=== PATIENT | female | born 1990 | race Caucasian/White ===

== ENCOUNTER 2018-06-20 11:22 | Emergency (ER) | payer MEDICAID ==
[~2018-06-20] VITALS: Ht 157.5 cm; Wt 59.4 kg
[~2018-06-20 11:22] MED LIST: ALPR1TAB2 PO; CEPH500C5 PO; IBUP-1986 PO; ONDA4TAB6 PO
[2018-06-20 11:39] VITALS: BP 114/67
[2018-06-20] MEDS ORDERED: HYDROcodone/acetaminophen 10/325mg tab PO ONE (13:40)
[2018-06-20] MEDS ORDERED: PENI500T2 PO (13:44)
[2018-06-20] MEDS ORDERED: HYDR-565 PO (13:44)
== END 2018-06-20 14:32 | disposition home or self-care (01) ==
LOC: ER 11:22
DX: K08.89 Other specified disorders of teeth and supporting structures (principal); E11.9 Type 2 diabetes mellitus without complications; Z88.6 Allergy status to analgesic agent
CPT/HCPCS: 99283

== ENCOUNTER 2019-04-22 20:32 | Emergency (ER) | payer MEDICAID, OTHER ==
[~2019-04-22] VITALS: Ht 157.5 cm; Wt 59.0 kg
[~2019-04-22 20:32] MED LIST changes: -CEPH500C5 PO
[2019-04-22 20:36] VITALS: BP 121/73
[2019-04-22] MEDS ORDERED: SULF1TAB49 PO (21:56)
== END 2019-04-22 22:17 | disposition home or self-care (01) ==
LOC: ER 20:34
DX: L02.414 Cutaneous abscess of left upper limb (principal); L02.01 Cutaneous abscess of face; E11.9 Type 2 diabetes mellitus without complications; Z86.14 Personal history of Methicillin resistant Staphylococcus aureus infection; Z88.5 Allergy status to narcotic agent; Z79.2 Long term (current) use of antibiotics; Z79.899 Other long term (current) drug therapy; W57.XXXA Bitten or stung by nonvenomous insect and other nonvenomous arthropods, initial encounter; Y93.89 Activity, other specified; Y92.89 Other specified places as the place of occurrence of the external cause; Y99.8 Other external cause status
CPT/HCPCS: 99283

== ENCOUNTER 2019-04-28 23:41 | Emergency (ER) | payer SELFPAY ==
[~2019-04-28] VITALS: Ht 157.5 cm; Wt 46.1 kg
[~2019-04-28 23:41] MED LIST changes: +SULF1TAB49 PO
[2019-04-28 23:51] VITALS: BP 160/95
== END 2019-04-29 02:00 | disposition left against medical advice (07) ==
LOC: ER 23:42
DX: M25.522 Pain in left elbow (principal); Z53.21 Procedure and treatment not carried out due to patient leaving prior to being seen by health care provider; V00.131A Fall from skateboard, initial encounter; Y93.51 Activity, roller skating (inline) and skateboarding; Y92.89 Other specified places as the place of occurrence of the external cause; Y99.8 Other external cause status

== ENCOUNTER 2019-05-29 00:47 | Emergency (ER) | payer SELFPAY ==
[~2019-05-29] VITALS: Ht 160 cm; Wt 54.0 kg
[~2019-05-29 00:47] MED LIST changes: -SULF1TAB49 PO
--- NOTE | 2019-05-29 02:43 | NUR ---
ice pack replaced with fresh one.pt currently refusing medication for pain.
[2019-05-29] MEDS ORDERED: DOXY100C2 PO (02:45)
--- NOTE | 2019-05-29 03:04 | NUR ---
discussed pt's increasing pain with nelly gramajo; new orders received. pt's ice pack replaced.
[2019-05-29] MEDS ORDERED: DOXYCYCLINE 100MG CAPSULE PO STA (03:11)
[2019-05-29] MEDS ORDERED: ibuprofen tablet 400 MG TABLET PO ONE (03:15)
[2019-05-29 03:21] VITALS: BP 125/81
== END 2019-05-29 03:23 | disposition home or self-care (01) ==
LOC: ER 00:48
DX: S80.811A Abrasion, right lower leg, initial encounter (principal); S80.812A Abrasion, left lower leg, initial encounter; S50.312A Abrasion of left elbow, initial encounter; L02.415 Cutaneous abscess of right lower limb; L03.115 Cellulitis of right lower limb; E11.9 Type 2 diabetes mellitus without complications; F17.200 Nicotine dependence, unspecified, uncomplicated; Z86.14 Personal history of Methicillin resistant Staphylococcus aureus infection; Z88.5 Allergy status to narcotic agent; Z79.899 Other long term (current) drug therapy; X58.XXXA Exposure to other specified factors, initial encounter; Y93.51 Activity, roller skating (inline) and skateboarding; Y92.89 Other specified places as the place of occurrence of the external cause; Y99.8 Other external cause status
CPT/HCPCS: 73564; 99283

== ENCOUNTER 2020-05-22 16:01 | Emergency (ER) | payer OTHER ==
[~2020-05-22] VITALS: Ht 160 cm; Wt 61.4 kg
[2020-05-22 16:06] VITALS: BP 137/88
[2020-05-22] MEDS ORDERED: CEPH250T PO (16:30)
[2020-05-22] MEDS ORDERED: ibuprofen tablet 400 MG TABLET PO ONE (16:30)
[2020-05-22] MEDS ORDERED: sulfamethoxazole/trimethoprim DS (800/160mg) tablet PO ONE (16:30)
[2020-05-22] MEDS ORDERED: IBUP-1984 PO (16:30)
[2020-05-22] MEDS ORDERED: BACDS PO (16:30)
== END 2020-05-22 16:50 | disposition home or self-care (01) ==
LOC: ER 16:02
DX: L03.011 Cellulitis of right finger (principal); M79.644 Pain in right finger(s); E11.9 Type 2 diabetes mellitus without complications; Z86.14 Personal history of Methicillin resistant Staphylococcus aureus infection; Z88.5 Allergy status to narcotic agent; Z79.2 Long term (current) use of antibiotics; Z79.899 Other long term (current) drug therapy
CPT/HCPCS: 99283

== ENCOUNTER 2021-02-21 16:42 | Emergency (ER) | payer MEDICAID ==
[~2021-02-21] VITALS: Ht 157.5 cm; Wt 60.6 kg
--- NOTE | 2021-02-21 16:59 | NUR ---
NOT IN LOBBY
[2021-02-21 17:14] VITALS: BP 129/82
[2021-02-21 18:59] LABS: CLARITY,URINE SLIGHTLY CLOUDY (Clear); COLOR,URINE YELLOW (Yellow); GLUCOSE, URINE NEGATIVE (Neg); KETONES,URINE NEGATIVE (Neg); LEUKOCYTE ESTERASE ,URINE NEGATIVE (Neg); NITRITES, URINE POSITIVE (Neg); OCCULT BLOOD,URINE NEGATIVE (Neg); PROTEIN,URINE NEGATIVE (Neg); UROBILINOGEN,URINE 0.2 E.U/dL (0.2-1.0)
[2021-02-21 19:15] LABS: UA COLLECTION TYPE CLN CATCH MIDSTREAM
[2021-02-21 19:16] LABS: BACTERIA,URINE 2+ /HPF (Neg); RBC,URINE NONE SEEN /HPF (0-2); SQUAMOUS EPITHELIAL CELL,UR FEW /LPF (FEW); WBC,URINE 0-4 /HPF (0-4)
[2021-02-21] MEDS ORDERED: DOXY-11 PO (19:36)
[2021-02-21] MEDS ORDERED: CefTRIAXone 250MG IM Kit w/LIDOcaine IM STA (19:37)
[2021-02-21] MEDS ORDERED: metroNIDAZOLE 500mg tablet PO ONE (19:40)
== END 2021-02-21 20:34 | disposition home or self-care (01) ==
LOC: ER 16:42
DX: A64 Unspecified sexually transmitted disease (principal); E11.9 Type 2 diabetes mellitus without complications; Z86.14 Personal history of Methicillin resistant Staphylococcus aureus infection; Z88.5 Allergy status to narcotic agent; Z79.2 Long term (current) use of antibiotics; Z79.899 Other long term (current) drug therapy
CPT/HCPCS: 36415; 81001; 87491; 87591; 96372; 99283; J0696; J3490

== ENCOUNTER 2022-03-27 11:29 | Day surgery (SDC) | payer MEDICAID ==
[~2022-03-27] VITALS: Ht 162.6 cm; Wt 61.4 kg
[~2022-03-27 11:29] MED LIST changes: +LIDOcaine 1%/PF 5ML 10 MG/ML VIAL ONE; +fentaNYL/PF 50MCG/1 ML 2ML syringe ONE; +heparin sodium, porcine/PF 100unit/ml 5ML syringe ONE; +midazolam 1 mg/ML 2ml injection ONE
[2022-03-27] MEDS ORDERED: normal saline 1000ml 1,000 ML IV PRN (11:45)
[2022-03-27 11:50] VITALS: BP 113/74
[2022-03-27] MEDS ORDERED: normal saline 1000ml 1,000 ML IV SCH (12:05)
[2022-03-27] MEDS ORDERED: NO HOME MEDS (12:06)
[2022-03-27] MEDS ORDERED: midazolam 1 mg/ML 2ml injection ONE (12:35)
[2022-03-27 12:57] VITALS: BP 113/75
[2022-03-27 13:12] VITALS: BP 111/77
[2022-03-27 13:27] VITALS: BP 116/75
[2022-03-27 13:42] VITALS: BP 112/74
== END 2022-03-27 14:00 | disposition home or self-care (01) ==
LOC: SSTAY O 11:29
PROVIDERS: ATTEND Radiology Diagnostic Radiology
DX: C50.411 Malignant neoplasm of upper-outer quadrant of right female breast (principal); Z88.5 Allergy status to narcotic agent; Z79.899 Other long term (current) drug therapy
CPT/HCPCS: 36561; 76937; 77001; 82948; 99152; 99153; C1769; C1788; C1894; J1642; J2250; J3010; J3490; J7030; A4620

== ENCOUNTER 2022-05-13 05:48 | Emergency (ER) | payer MEDICAID ==
[~2022-05-13] VITALS: Ht 157.5 cm; Wt 55.7 kg
[~2022-05-13 05:48] MED LIST changes: -ALPR1TAB2 PO; -IBUP-1986 PO; -LIDOcaine 1%/PF 5ML 10 MG/ML VIAL ONE; +NO HOME MEDS; -ONDA4TAB6 PO; -fentaNYL/PF 50MCG/1 ML 2ML syringe ONE; -heparin sodium, porcine/PF 100unit/ml 5ML syringe ONE; -midazolam 1 mg/ML 2ml injection ONE
[2022-05-13 05:51] VITALS: BP 122/82
[2022-05-13] MEDS ORDERED: acetaminophen 325mg tablet PO ONE (06:25)
[2022-05-13] MEDS ORDERED: clindamycin 150mg capsule PO ONE (06:25)
[2022-05-13] MEDS ORDERED: ondansetron 4mg rapidly disintigrating tab PO ONE (06:25)
[2022-05-13] MEDS ORDERED: LIDOcaine 1% W/epiNEPHrine 1:100,000 20ml vial IJ ONE (06:25)
[2022-05-13] MEDS ORDERED: bacitracin 15gm ointment TP ONE (06:25)
[2022-05-13] MEDS ORDERED: CLIN150C2 PO (06:30)
== END 2022-05-13 07:29 | disposition home or self-care (01) ==
LOC: ER 05:49
DX: L02.31 Cutaneous abscess of buttock (principal); E11.9 Type 2 diabetes mellitus without complications; Z88.5 Allergy status to narcotic agent; Z86.14 Personal history of Methicillin resistant Staphylococcus aureus infection; Z79.899 Other long term (current) drug therapy
CPT/HCPCS: 10060; 99284; J3490; A6407; A6449

== ENCOUNTER 2022-06-12 02:10 | Emergency (ER) | payer MEDICAID ==
[~2022-06-12] VITALS: Ht 157.5 cm; Wt 60.0 kg
[2022-06-12] MEDS ORDERED: bacitracin 15gm ointment TP ONE (03:40)
[2022-06-12] MEDS ORDERED: TETanus/Pertussis (Acell)/Diphther VAC/PF (Tdap-Adult) 0.5ml syringe IMVAC ONE (03:40)
[2022-06-12] MEDS ORDERED: propofol 10mg/ml 20ml vial IV ONE (03:40)
[2022-06-12] MEDS ORDERED: ceFAZolin/D5W- 1GM premix 50 ML IV ONE (03:50)
[2022-06-12] MEDS ORDERED: ondansetron/PF 4mg/2ml inj IV ONE (03:50)
[2022-06-12] MEDS ORDERED: CEPH250T PO ×2 (03:52)
[2022-06-12] MEDS ORDERED: IBUP-1984 PO ×2 (04:29)
[2022-06-12] MEDS ORDERED: ibuprofen tablet 400 MG TABLET PO ONE (05:05)
[2022-06-12 05:28] VITALS: BP 111/65
== END 2022-06-12 05:30 | disposition home or self-care (01) ==
LOC: ER 02:10
DX: L02.91 Cutaneous abscess, unspecified (principal); E11.9 Type 2 diabetes mellitus without complications; Z86.14 Personal history of Methicillin resistant Staphylococcus aureus infection; Z88.5 Allergy status to narcotic agent; Z79.1 Long term (current) use of non-steroidal anti-inflammatories (NSAID)
CPT/HCPCS: 10060; 90471; 90715; 93005; 94799; 96365; 96375; 99152; 99285; J0690; J2405; J2704; J7030; 94760; A6446; A6449

== ENCOUNTER 2022-11-13 02:20 | Emergency (ER) | payer MEDICAID ==
[~2022-11-13] VITALS: Ht 157.5 cm; Wt 70.0 kg
[2022-11-13 02:31] VITALS: BP 133/85
[2022-11-13] MEDS ORDERED: LIDOCAINE 2%/EPI 1:100,000 inj. Multi-dose 20 ML VIAL SQ ONE (03:00)
[2022-11-13] MEDS ORDERED: sulfamethoxazole/trimethoprim DS (800/160mg) tablet PO ONE (03:50)
[2022-11-13] MEDS ORDERED: SULF1TAB49 PO (03:50)
[2022-11-13] MEDS ORDERED: ondansetron 4mg rapidly disintigrating tab PO ONE (03:50)
[2022-11-13] MEDS ORDERED: acetaminophen 325mg tablet PO ONE (03:55)
== END 2022-11-13 04:14 | disposition home or self-care (01) ==
LOC: ER 02:20
DX: L02.414 Cutaneous abscess of left upper limb (principal); E11.9 Type 2 diabetes mellitus without complications; Z88.5 Allergy status to narcotic agent; Z86.14 Personal history of Methicillin resistant Staphylococcus aureus infection
CPT/HCPCS: 10060; 87070; 87075; 87077; 87186; 99284; A6449

== ENCOUNTER 2023-06-15 07:04 | Emergency (ER) | payer MEDICAID ==
[~2023-06-15] VITALS: Ht 157.5 cm; Wt 63.6 kg
[2023-06-15 07:06] VITALS: TEMP 97.6
[2023-06-15 07:39] VITALS: BP 118/66; PULSE 97; RESP 16; O2SAT 98
[2023-06-15] MEDS ORDERED: iohexol 300mg/ml 100ml inj. ONE (08:00)
[2023-06-15] MEDS ORDERED: ketorolac trometh. 30mg/ml inj. IV ONE (08:05)
[2023-06-15 08:29] LABS: ALANINE AMINOTRANSFERASE 23 U/L (12-78); ALBUMIN 3.2 G/DL (3.4-5.0); ALBUMIN/GLOBULIN RATIO 0.7 (1.1-1.5); ALKALINE PHOSPHATASE 82 IU/L (46-116); ANION GAP 7 (8-16); ASPARTATE AMINO TRANSFERASE 18 U/L (10-37); BILIRUBIN,TOTAL 0.2 MG/DL (0.1-1.0); BLOOD UREA NITROGEN 12 MG/DL (7-18); BUN/CREATININE RATIO 22.6 (10.0-20.0); CALCIUM 8.9 MG/DL (8.5-10.1); CHLORIDE 103 MMOL/L (99-107); CREATININE 0.53 MG/DL (0.40-0.90); GLUCOSE 99 MG/DL (70-104); POTASSIUM 3.5 MMOL/L (3.5-5.1); SODIUM 137 MMOL/L (135-145); TOTAL CARBON DIOXIDE 26.8 MMOL/L (24-32); TOTAL PROTEIN 7.5 G/DL (6.4-8.2); eCRCL 118 ML/MIN; eGFR > 90 ML/MIN
[2023-06-15 08:31] LABS: BASOPHILS % (AUTO) 0.3 % (0-1); EOSINOPHILS # (AUTO) 0.1 X10'3 (0-0.9); EOSINOPHILS % (AUTO) 1.5 % (0-6); HEMATOCRIT 31.5 % (35.0-45.0); HEMOGLOBIN 10.9 g/dl (12.0-16.0); LYMPHOCYTES # (AUTO) 0.9 X10'3 (1.1-4.8); LYMPHOCYTES % (AUTO) 14.6 % (21-51); MEAN CORPUSCULAR HEMOGLOBIN 32.1 PG (27.0-31.0); MEAN CORPUSCULAR HGB CONC 34.5 g/dL (33.0-36.5); MEAN PLATELET VOLUME 7.5 FL (7.4-10.4); MONOCYTES # (AUTO) 0.6 X10'3 (0-0.9); MONOCYTES % (AUTO) 9.7 % (2-12); NEUTROPHILS # (AUTO) 4.4 X10'3 (1.8-7.7); NEUTROPHILS % (AUTO) 73.9 % (42-75); PLATELET COUNT 291 X10'3 (140-440); RED BLOOD COUNT 3.39 X10'6 (4.20-5.60); RED CELL DISTRIBUTION WIDTH 14.5 % (11.5-14.5); WHITE BLOOD COUNT 5.9 X10'3 (4.5-11.0)
--- NOTE | 2023-06-15 09:05 | NUR ---
Pt not in room, pt gown on bed, no IV that was placed noted in the room or trash.
[2023-06-15] MEDS ORDERED: acetaminophen 1,000mg/100ml IV 100 ML IV SCH (09:08)
--- NOTE | 2023-06-15 09:35 | NUR ---
Unable to locate pt, pt without contact phone # and emergency contact # is not up to date as number belongs to someone else. [employer] contacted and left wellness check concern as pt last seen with IV. Received ref #[id number]
== END 2023-06-15 17:54 | disposition left against medical advice (07) ==
LOC: ER 07:05
DX: R10.31 Right lower quadrant pain (principal); R10.2 Pelvic and perineal pain; R10.30 Lower abdominal pain, unspecified; E11.9 Type 2 diabetes mellitus without complications; Z86.14 Personal history of Methicillin resistant Staphylococcus aureus infection; Z88.5 Allergy status to narcotic agent; Z85.3 Personal history of malignant neoplasm of breast; Z90.11 Acquired absence of right breast and nipple; Z87.19 Personal history of other diseases of the digestive system
CPT/HCPCS: 36415; 80053; 85025; 99283; J3490; Q9967

== ENCOUNTER 2024-03-30 12:04 | Emergency (ER) | payer MEDICAID ==
[~2024-03-30] VITALS: Ht 157.5 cm; Wt 68.5 kg
[2024-03-30 12:15] VITALS: BP 126/85; PULSE 107; O2SAT 98
[2024-03-30] MEDS ORDERED: SULF1TAB49 PO (13:00)
[2024-03-30 13:09] VITALS: RESP 15; TEMP 97.9
[2024-03-31] MEDS ORDERED: CEPH-585 PO (16:45)
[2024-03-31] MEDS ORDERED: HYDR-3972 PO (17:18)
== END 2024-03-30 13:10 | disposition home or self-care (01) ==
LOC: ER 12:05
DX: L03.811 Cellulitis of head [any part, except face] (principal); E11.9 Type 2 diabetes mellitus without complications; Z88.8 Allergy status to other drugs, medicaments and biological substances
CPT/HCPCS: 99283

== ENCOUNTER 2024-03-31 13:44 | Emergency (ER) | payer MEDICAID ==
[~2024-03-31] VITALS: Ht 157.5 cm; Wt 68.0 kg
[~2024-03-31 13:44] MED LIST changes: +SULF1TAB49 PO
[2024-03-31 15:02] LABS: BASOPHILS % (AUTO) 0.3 % (0-1); EOSINOPHILS # (AUTO) 0.1 X10'3 (0-0.9); EOSINOPHILS % (AUTO) 0.6 % (0-6); HEMATOCRIT 36.2 % (35.0-45.0); HEMOGLOBIN 11.9 g/dl (12.0-16.0); LYMPHOCYTES # (AUTO) 1.3 X10'3 (1.1-4.8); LYMPHOCYTES % (AUTO) 11.8 % (21-51); MEAN CORPUSCULAR HEMOGLOBIN 32.3 PG (27.0-31.0); MEAN CORPUSCULAR HGB CONC 32.9 g/dL (33.0-36.5); MEAN CORPUSCULAR VOLUME 98.2 FL (78-98); MEAN PLATELET VOLUME 8.6 FL (7.4-10.4); MONOCYTES # (AUTO) 0.8 X10'3 (0-0.9); MONOCYTES % (AUTO) 7.7 % (2-12); NEUTROPHILS # (AUTO) 8.8 X10'3 (1.8-7.7); NEUTROPHILS % (AUTO) 79.6 % (42-75); PLATELET COUNT 262 X10'3 (140-440); RED BLOOD COUNT 3.68 X10'6 (4.20-5.60); RED CELL DISTRIBUTION WIDTH 13.7 % (11.5-14.5)
[2024-03-31 15:11] LABS: ALBUMIN 3.1 G/DL (3.4-5.0); ANION GAP 6 (8-16); BLOOD UREA NITROGEN 8 MG/DL (7-18); BUN/CREATININE RATIO 12.1 (10.0-20.0); CALCIUM 8.8 MG/DL (8.5-10.1); CHLORIDE 104 MMOL/L (99-107); CREATININE 0.66 MG/DL (0.40-0.90); GLUCOSE 90 MG/DL (70-104); POTASSIUM 3.9 MMOL/L (3.5-5.1); SODIUM 137 MMOL/L (135-145); TOTAL CARBON DIOXIDE 27.5 MMOL/L (24-32); eCRCL 94 ML/MIN; eGFR > 90 ML/MIN
[2024-03-31] MEDS ORDERED: CEPH-585 PO (16:45)
[2024-03-31] MEDS ORDERED: HYDR-3972 PO (17:18)
[2024-03-31] MEDS: CefTRIAXone/D5W-Rocephin 1gm 50 ML IV ONE (17:23)
[2024-03-31 18:18] VITALS: BP 126/78; PULSE 100; RESP 18; TEMP 98.3; O2SAT 99
== END 2024-03-31 18:20 | disposition home or self-care (01) ==
LOC: ER 13:45
DX: L03.211 Cellulitis of face (principal); Z86.14 Personal history of Methicillin resistant Staphylococcus aureus infection; E11.9 Type 2 diabetes mellitus without complications; Z88.5 Allergy status to narcotic agent; Z79.2 Long term (current) use of antibiotics
CPT/HCPCS: 36415; 71045; 80048; 83605; 84145; 85025; 87040; 96374; 99284; J0696

== ENCOUNTER 2025-06-24 06:26 | Emergency (ER) | payer MEDICAID ==
[~2025-06-24] VITALS: Ht 157.5 cm; Wt 62.6 kg
[~2025-06-24 06:26] MED LIST changes: -SULF1TAB49 PO
[2025-06-24 06:37] VITALS: BP 128/71; TEMP 97.4
[2025-06-24] MEDS ORDERED: SULF1TAB49 PO (07:35)
[2025-06-24] MEDS ORDERED: CEPH-585 PO (07:35)
--- NOTE | 2025-06-24 07:38 | Physician Documentation ---
History of Present Illness General Chief Complaint: Abscess Stated Complaint: TOOTH PAIN Time Seen by MD: 07:32 Primary Medical Doctor: Nay Erazo History of Present Illness Initial Comments Patient is a 34-year-old female with a history of skin infections presents with a crusted lesion over the right treat with some swelling. This has been going on for about four days. She is not certain with a she has had MRSA in the past. Medication Reconciliation Allergies: Coded Allergies: morphine (Verified Allergy, Unknown, 06/24/25) Miscellaneous Medications Home Med List (No Home Medications), (Reported) Past Medical History Past Medical History: Diabetes, MRSA Abscess, Breast Cancer Past Surgical History: no surgical history Smoking: Cigarettes Alcohol Use: None Drug Use: none Lives with: Family Lives In: Home Occupation: employed Review of Systems ROS Constitutional: Denies chills, fatigue, fever, weight gain or weight loss. HEENT: Erythema of right cheek with 1 cm crusted lesion. No fluctuance. Respiratory: Denies cough, shortness of breath or wheezing. Cardiovascular: Denies chest pain, pain while walking (claudication), edema or palpitations. Gastrointestinal: Denies abdominal pain, blood in stool, constipation, diarrhea, heartburn, loss of appetite, nausea or vomiting. Genitourinary: Denies painful urination (dysuria), excessive amount of urine (polyuria) or urinary frequency. Metabolic/Endocrine: Denies cold intolerance, heat intolerance, excessive thirst (polydipsia) or excessive hunger (polyphagia). Neurological: Denies dizziness, extremity numbness, extremity weakness, headaches, seizures or tremors. Psychiatric: Denies anxiety or depression. Integumentary: Denies breast discharge, breast lump, hives, mole change(s), rash or skin lesion. Musculoskeletal: Denies back pain, joint pain, joint swelling or neck pain. Hematologic: Denies easily bleeding, easily bruises, lymphedema or issues with blood clots. Immunologic: Denies food allergies or seasonal allergies. Physical Exam Physical Exam Vital Signs: Temperature: 97.4, Source: Oral, Heart Rate: 104, Respiratory Rate: 18, BP: 128/71, Pulse Oximetry: 98, Weight: 62.600 Physical Exam Physical Exam Vitals and nursing note reviewed. Constitutional: General: Patient is awake, alert, oriented x 4 in no acute distress and well appearing. Speech is clear and lucid. Appearance: Normal appearance. Patient is not ill-appearing, toxic-appearing or diaphoretic. HENT: Head: Normocephalic and atraumatic. Mouth/Throat: Erythema of right cheek with 1 cm crusted lesion. No fluctuance. Mouth: Mucous membranes are moist. Pharynx: Oropharynx is clear. Eyes: General: No scleral icterus. Extraocular Movements: Extraocular movements intact. Pupils: Pupils are equal, round, and reactive to light. Neck: Supple, no Kernig or Brudzinski sign. Cardiovascular: Rate and Rhythm: Normal rate and regular rhythm. Heart sounds: No murmur heard. Pulmonary: Effort: No respiratory distress. Breath sounds: No wheezing, rhonchi or rales. Abdominal: General: There is no distension. Palpations: There is no fluid wave, hepatomegaly or mass. Tenderness: There is no abdominal tenderness. There is no guarding. Musculoskeletal: General: No swelling or deformity. Skin: Coloration: Skin is not jaundiced. Findings: No erythema or rash. Neurological: Mental Status: Patient is alert. Progress Results/Orders Results/Orders Vital Signs 06/24/25 06:37 Temp 97.4 Pulse 104 Resp 18 B/P (MAP) 128/71 Pulse Ox 98 Medical Decision Making Findings This 34-year-old female has cellulitis involving her right cheek. She does not appear toxic or septic though she did have mild tachycardia. I am going to treat her with Keflex and Bactrim and close follow-up with her PCP. Return precautions provided. Departure Disposition: 01 HOME / SELF CARE / HOMELESS Impression: Primary Impression: Facial cellulitis Condition: Stable Discharge Instructions: Cellulitis, Adult, [id number] Additional Instructions: It is important to see your doctor or primary care provider. Emergency care may be incomplete without proper follow-up. Symptoms sometimes change or new symptoms might arise after you leave the emergency department. It is important that you call your doctor if you become worse in any way, or return to the emergency department. You are strongly urged to follow-up with your physician to assure complete and thorough care. Please call your doctor's office today, and informed them that you were seen in the emergency department, and that you need to be seen immediately for close follow-up. If you do not have a primary care doctor we encourage you to proactively seek a local physician for close follow-up. Consider local clinics, [facility], or [facility]. Prior to discharge we spoke at length concerning symptoms that would merit reevaluation, but please return to the emergency department for any symptoms that are concerning to you, and we will be happy to continue your evaluation and treatment. Please note you can always return to the emergency department if you are having difficulty coordinating close follow-up. If medications were prescribed, you should fill them at your local pharmacy immediately and take only as prescribed. Bring your new medications to your doctors follow-up visit to discuss any changes that would be necessary. Please check [facility] for any results you did not receive in the Emergency Department: often we are unable to get all your tests back before you leave, and these tests need to be reviewed by your PCP and yourself. You can also call Medical Records if you are unable to access the internet to see [facility]. Return to the emergency department immediately for worsening chest pain, difficulty breathing, sweating, or other concerning emergent symptoms. Prescriptions Sulfamethoxazole/Trimethoprim (Bactrim Ds Tablet) 800 Mg-160 Mg Tablet 1 TAB PO Q12H for 10 Days, #20 TAB Prov: SHAGUFTA MONTES DE OCA MD 06/24/25 Cephalexin*Monohydrate* (Keflex*) 500 Mg Capsule 2 CAP PO BID, #28 CAP Prov: SHAGUFTA MONTES DE OCA MD 06/24/25 Education Educated: Patient Educated regarding: diagnosis, treatment, prognosis, need for follow up Signature Scribe Signature: . Attestation: . SHAGUFTA MONTES DE OCA MD Jun 24, 2025 07:38
[2025-06-24] MEDS: sulfamethoxazole/trimethoprim DS (800/160mg) tablet PO ONE (08:00)
[2025-06-24 08:17] VITALS: PULSE 66; RESP 18; O2SAT 98
== END 2025-06-24 08:30 | disposition home or self-care (01) ==
LOC: ER 06:26
DX: L03.211 Cellulitis of face (principal); E11.9 Type 2 diabetes mellitus without complications; F17.210 Nicotine dependence, cigarettes, uncomplicated
CPT/HCPCS: 99283